=== PATIENT | female | born 1955 | race Caucasian/White ===

== ENCOUNTER 2018-12-01 05:27 | Day surgery (SDC) | payer BC, OTHER ==
[~2018-12-01] VITALS: Ht 157.5 cm; Wt 105.2 kg
[~2018-12-01 05:27] MED LIST: ADVAIR 250-501 EACH INH; ADVAIRDISKUS; ALLEGRA ALLERG180 MG PO; ALLEGRA ALLERGY60 MG PO; AMBIEN 5 MG TABL5 M1 PO; ASPIR 8181 M1 PO; BELSOMRA20 MG PO; BENTYL; BENTYL 20 MG TA20 M1 PO; COLACE 100 MG100 MG PO; DARVOCET-N 1001 EACH PO; DICLOFENAC SODI75 MG PO; EMGALITY120 MG/1 M SUBQ; FLAGYL500 MG PO; FLEXERIL PO; FLONASE 0.05%50 MCG NASAL; GLUCOPHAGE XR500 MG PO; HYDROCODON-ACE1 EAC7 PO; IBUPROFEN 400400 M2 PO; IMITREX100 MG PO; IMODIUM A-1 MG/7.5 M PO; LEVAQUIN 500 M500 M2 PO; LEVITRA2.5 MG PO; LEVOXYL75 MCG PO; LEVSIN-SL0.125 MG SL; LIPITOR 20 MG T20 M1 PO; MIRALAX17 GM PO; MOBIC15 MG PO; MOVANTIK25 MG PO; NASONEX; NEURONTIN 300M300 M2 PO; NORCO 5-325 TA1 EACH PO; NORCO 7.5-3251 EACH PO; ONDANSETRON HCL4 M2 PO; PHENERGAN 25 MG25 M1 PO; PHENERGAN25 M1 RECTAL; PREMARIN; PROAIR HFA8.5 GM INH; PROTONIX40 M2 PO; REGLAN 5 MG TAB5 MG PO; REMERON SOLTAB45 MG PO; SEROQUEL 25 MG25 M1 PO; SINGULAIR; SINGULAIR 10 MG10 M1 PO; THYROID MC; TRICOR; TRULANCE3 MG PO; VANCOCIN 125 M125 M1 MC; VANCOMYCIN100 MG/M1 PO; VIIBRYD20 MG PO; VITAMIN B-12500 MCG PO; VITAMIN D35000 UNIT PO; XANAX XR1 MG PO; ZOFRAN ODT4 MG PO; ZOFRAN4 MG PO
[2018-12-01 12:00] VITALS: BP 158/81
[2018-12-01 15:07] VITALS: BP 158/81
--- NOTE | 2018-12-03 12:58 | O ---
[facility] [place] [address] OPERATIVE REPORT Name: JAMES CANNON I Room #: [facility] MJuan.#: [id number] Admission: 12/01/18 ������������������ Attend Phys: Ryan Tran Discharge: 12/01/18 ������������������ Date of : 59 Report #: [id number] THIS REPORT FOR: //name// CC: Manpreet Dhaliwal PREOPERATIVE DIAGNOSES: Right shoulder pain, rotator cuff tear, impingement syndrome, acromioclavicular joint arthrosis, biceps tendinopathy. POSTOPERATIVE DIAGNOSES: Right shoulder pain. Rotator cuff tear, medium size. Impingement syndrome, acromioclavicular joint pain and arthrosis. Complex labral tear, glenohumeral joint chondromalacia, acromioclavicular joint arthrosis. PROCEDURE PERFORMED: Right shoulder arthroscopy, rotator cuff repair, subacromial decompression, distal clavicle excision and extensive debridement. SURGEON: Ryan Dhaliwal M.D. SILVERSMITH APPRENTICE: Daysi Langford PA-C. ANESTHESIA: General with preoperative ultrasound-guided interscalene block. FLUIDS: 500 mL crystalloid. ESTIMATED BLOOD LOSS: Approximately 5 mL. DESCRIPTION OF PROCEDURE: After proper identification of the patient and operative site in preoperative holding area, the operative site was signed by myself. Prophylactic antibiotics given. The patient elected to receive a block after reviewing the risks, benefits, alternatives and potential complications with anesthesia. After a satisfactory block, the patient was brought back to the operative suite after induction of satisfactory general anesthesia per endotracheal tube. The patient's right shoulder was examined. It was stable throughout a full arc of motion comparable to the preoperative assessment. The patient was carefully positioned in the left lateral decubitus position. Phillips bag and extra roll were utilized to support the torso. Right shoulder was sterilely prepped and draped in usual manner and placed in 10 pounds of balanced arthroscopic suspension. Posterior portal was established, joint was inflated with an arthroscopic pump set at 40 mmHg. An anterior superior portal was created using a spinal needle for localization. Examination of the glenohumeral joint revealed some synovitis within the rotator interval. Complex labral tearing was noted of the anterior superior and posterior superior quadrants. Some mild degeneration and fibrillation were appreciated along the more inferior labrum. There is some partial thickness tearing of the long head of biceps tendon as it attached to the labrum, but overall the bicipital labral complex appeared stable in its attachment. There was no evidence of groove pathology [address] [address] OPERATIVE REPORT Name: JAMES CANNON I Room #: DEP [facility] Zurdo#: [id number] Admission: 12/01/18 ������������������ Attend Phys: Ryan Tran Discharge: 12/01/18 ������������������ Date of : 59 Report #: [id number] noted. The upper border of the subscapularis was intact. There was a high-grade chondral thinning on the glenoid side. The more peripheral aspect of the glenoid demonstrated more significant thinning of the central aspect, which demonstrated more diffuse fibrillation. Diffuse chondral thinning and fibrillation were also noted on the humeral head. This was partial thickness in nature with no exposed bone noted. From the articular side, there was a tear of the supraspinatus with what appeared to be a few remaining bursal fibers. A marking stitch was placed, and this very easily passed through the tissue suggesting that there was a bursal component as well. Uncovering of the footprint was also appreciated. At this point, the arthroscope was introduced in the subacromial space where very thickened subacromial bursa was encountered. There was a prominence to the anterolateral acromion and prominence to the acromion was removed using motorized bur. The acromioclavicular joint arthrosis was noted. This was painful preoperatively. Distal clavicle excision was performed with motorized bur and shaver where approximately 8-10 mm of bone was resected. A 10 mm grasper could easily be opened within the joint space following a distal clavicle excision. There is, from the bursal side, a near complete tear of the supraspinatus tear measured approximately 2 to 2.5 cm. Frayed portion of the cuff was carefully debrided. Greater tuberosity was debrided with combination of hand and motorized instrumentation. The few remaining fibers were carefully debrided, and this was repaired with a single triple-loaded Arthrex anchor 4.75 mm in diameter. Sutures were passed in a horizontal mattress fashion, tied with locking sliding knots, backed up with alternating half hitches. Double row fixation was utilized using an additional SwiveLock anchor. Repair construct was stable to probing. Subacromial space thoroughly irrigated. The portals closed with simple nylon stitch. Sterile dressing was applied. The patient will be immobilized in a sling and abduction pillow for 6 weeks postoperatively. Qualified airline pilot/first officer was utilized throughout the entire procedure to aid in patient limb positioning, visualization with the arthroscope instrument and suture passage as well as closure and sling application. ��������������������������������������������� <ELECTRONICALLY SIGNED> ���������������������������������������� By: Ryan Dhaliwal MD ��������������������������������������������� 12/03/18 1258 [id number] 1539 Ryan Dhaliwal MD /nt
== END 2018-12-01 09:45 | disposition home or self-care (01) ==
LOC: OR 05:27 → TBA 05:28 → OR 08:24
DX: M19.011 Primary osteoarthritis, right shoulder (principal); M75.101 Unspecified rotator cuff tear or rupture of right shoulder, not specified as traumatic; S43.491A Other sprain of right shoulder joint, initial encounter; M75.41 Impingement syndrome of right shoulder; M75.21 Bicipital tendinitis, right shoulder; M94.211 Chondromalacia, right shoulder; Z79.899 Other long term (current) drug therapy; Z79.01 Long term (current) use of anticoagulants; Z79.82 Long term (current) use of aspirin; Z91.040 Latex allergy status; Z88.0 Allergy status to penicillin; Z88.2 Allergy status to sulfonamides; Z88.6 Allergy status to analgesic agent; Z90.49 Acquired absence of other specified parts of digestive tract; Z90.710 Acquired absence of both cervix and uterus; Z98.890 Other specified postprocedural states; Z87.19 Personal history of other diseases of the digestive system; X58.XXXA Exposure to other specified factors, initial encounter; Y93.89 Activity, other specified; Y92.89 Other specified places as the place of occurrence of the external cause; Y99.8 Other external cause status
CPT/HCPCS: 50010; 50101; 50172; 50386; 50417; 50935; 50950; 51038; 51320; 51445; 51847; 52001; 53610; 54170; 55430; 56525; 56527; 57103; 62110; 62900; 64039; 70005

== ENCOUNTER → 2021-09-11 | Day surgery (SDC) | payer BC, OTHER ==
[~2021-09-11] VITALS: Ht 157.5 cm; Wt 96.2 kg
[~2021-09-11] MED LIST changes: +ATIVAN1 M1 PO; +COZAAR 50 MG TA50 M1 PO; +GLUMETZA1000 PO; +LEVSIN0.125 MG PO; +LINZESS290 MCG PO; +LIPITOR 10 MG10 M1 PO; +OZEMPIC1 MG/0.71 SUBQ; +[UNRECOGNIZED DRUG - OTHER] PO
[2021-09-11 11:18] VITALS: BP 143/80
--- NOTE | 2021-09-11 13:24 | EKG ---
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 09/11/21 1323 1117 1117 Ramu Melton MD, FACC /EPI
[2021-09-11 13:53] VITALS: BP 143/80
--- NOTE | 2021-09-13 14:10 | O ---
[facility] [place] [address] OPERATIVE REPORT Name: JAMES CANNON I Room #: REG [facility] M.R.#: [id number] Admission: 09/11/21 Attend Phys: Ryan Tran Discharge: Date of : 59 Report #: [id number] THIS REPORT FOR: cc: Grant Sanchez,Grant Shanks,Ryan Gibson MD ~ PREOPERATIVE DIAGNOSES: Right shoulder pain, recurrent rotator cuff tear, acromioclavicular joint pain. POSTOPERATIVE DIAGNOSES: Right shoulder glenohumeral joint osteoarthritis, complex labral tear, acromioclavicular joint pain. PROCEDURE PERFORMED: Right shoulder arthroscopy, revision excision of the distal clavicle, extensive debridement. SURGEON: Ryan Dhaliwal MD [employer]STRUCTION PLANT OPERATOR: Daysi Langford PA-C. ANESTHESIA: General with preoperative ultrasound-guided interscalene block. FLUIDS: Please see anesthesia records. ESTIMATED BLOOD LOSS: Negligible. DESCRIPTION OF PROCEDURE: After proper identification of the patient and the operative site in preoperative holding area, the operative site signed by myself. Prophylactic antibiotics were given. The patient elected to proceed with the above-proposed procedure. After satisfactory ultrasound-guided block, the patient was brought back to the operative suite. After induction of satisfactory general anesthesia per LMA, the right shoulder was examined. It was stable throughout a full arc of motion and otherwise ligamentously stable. The patient was carefully positioned in the left lateral decubitus position. Phillips bag and axillary roll were utilized to support the torso. The right shoulder sterilely prepped and draped in the usual manner and placed in 10 pounds of balanced arthroscopic suspension. Posterior portal was established, joint was inflated with an arthroscopic pump set at 35 mmHg. An anterior superior portal was then created using a spinal needle for localization. Examination of the glenohumeral joint revealed some complex labral fraying and tearing of the more posterior inferior and anterior inferior quadrants of the labrum. This was carefully debrided. Some very small labral flaps were noted superiorly at approximately the 12 o'clock position, but the biceps attachment to the superior labrum and the superior labral attachment to the glenoid were all stable. No evidence of groove pathology was noted on the biceps. When it was pulled into the joint, it was stable within the bicipital groove. The [address] [address] OPERATIVE REPORT Name: DAVISJAMES I Room #: REG [facility] M.Gladis.#: [id number] Admission: 09/11/21 Attend Phys: Ryan Tran Discharge: Date of : 59 Report #: [id number] subscapularis was intact. Lever pull maneuver was utilized to view this in its entirety. No partial thickness tearing was noted. There was an area of grade 3 chondromalacia on the superior humeral head, measuring approximately 15 mm in diameter and the fibrillated tissue had been carefully debrided around this as shown in image 3. There were degenerative changes noted on the chondral surface of the glenoid and this was best appreciated inferiorly. No exposed bone was noted. Frayed portion of the complex labral tearing was then carefully debrided as shown in image 6. The patient had some generalized thinning of the humeral head chondral surface. The rotator cuff of the supraspinatus and infraspinatus was intact, the more anterior aspect of the supraspinatus you could tell that this is the area of her repair. These tendon fibers were intact. They were stable to probing. No uncovering of the footprint was appreciated. The rotator cable was intact. Next, the arthroscope was introduced in the subacromial space. There was no thickening of the subacromial bursa. The coracoacromial arch was normal in its appearance without any significant bony prominence. There was some mild spurring about the peripheral aspect of the acromioclavicular joint and revision distal clavicle excision was performed with a motorized bur and a grasper could easily be opened 10 mm within the joint space. Care was taken to preserve the superior capsular structures. The rotator cuff was viewed from multiple angles. It was probed in its entirety and this was healed nicely from the bursal surface. This area was probed extensively and there were no areas of softness that the probe fell into to suggest more of an intratendinous type lesion, a nice synovial layer or tendinous layer healed over the sutures and there was no prominent suture material and vascularity was noted in this region of the repair as well, so this appeared intact from both the articular side as well as the bursal side. There appeared to be no significant bursal-sided subdeltoid or subacromial type adhesions to release unless the tissue did not appear to be irritated or inflamed. After the debridement around the acromioclavicular joint was performed in a small area of the posterior bursal structures, the subacromial space was thoroughly irrigated with normal saline. Portals closed with simple nylon stitch. The patient will utilize a sling on an as needed basis postoperatively and this can be discontinued after her block has worn off. Qualified pastoral assistant utilized throughout the entire procedure to aid in patient limb positioning and visualization with the arthroscope. <ELECTRONICALLY SIGNED> By: Ryan Dhaliwal MD 09/13/21 1410 1220 1308 Ryan Dhaliwal, /pb
== END | disposition home or self-care (01) ==
LOC: OR 10:08
PROVIDERS: ATTEND Orthopaedic Surgery Sports Medicine
DX: M25.511 Pain in right shoulder (principal); M19.011 Primary osteoarthritis, right shoulder; S43.491A Other sprain of right shoulder joint, initial encounter; E11.9 Type 2 diabetes mellitus without complications; E78.5 Hyperlipidemia, unspecified; G43.909 Migraine, unspecified, not intractable, without status migrainosus; F32.9 Major depressive disorder, single episode, unspecified; K21.9 Gastro-esophageal reflux disease without esophagitis; E03.9 Hypothyroidism, unspecified; J45.909 Unspecified asthma, uncomplicated; Z98.890 Other specified postprocedural states; Z79.899 Other long term (current) drug therapy; Z90.49 Acquired absence of other specified parts of digestive tract; Z90.710 Acquired absence of both cervix and uterus; Z98.41 Cataract extraction status, right eye; Z98.42 Cataract extraction status, left eye; X58.XXXA Exposure to other specified factors, initial encounter; Y93.89 Activity, other specified; Y92.89 Other specified places as the place of occurrence of the external cause; Y99.8 Other external cause status
CPT/HCPCS: 50010; 50101; 50172; 50386; 50403; 51320; 51847; 52001; 52313; 53610; 56527; 57103; 58575; 58576; 58577; 58589; 62110; 62900; 64039; 70005